=== PATIENT | male | born 1975 | race African-American/Black ===

== ENCOUNTER 2017-04-24 14:35 | Inpatient (IN) | payer OTHER, MEDICAID ==
[~2017-04-24] VITALS: Ht 188 cm; Wt 80.0 kg
[2017-04-24 14:48] VITALS: BP 142/90; PULSE 98; RESP 18; O2SAT 98
[2017-04-24] MEDS ORDERED: ONDANSETRON HCL 4 MG/2 ML VIAL IV ONE (15:00)
[2017-04-24] MEDS ORDERED: MORPHINE SULFATE 4 MG/ML INJ IV PUSH ONE ×2 (15:00→17:15)
[2017-04-24] MEDS ORDERED: SODIUM CHLOR 0.9% 1000 ML INJ 1,000 ML IV ONE (15:00)
[2017-04-24 15:08] LABS: I-STAT POTASSIUM 3.7 MMOL/L (3.5-4.9); I-STAT SODIUM 139 MMOL/L (138-146)
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
[2017-04-24 15:17] LABS: AUTOMATED NEUTROPHIL # 10.3 TH/MM3 (1.8-7.7); BASOPHIL # 0.1 TH/MM3 (0-0.2); BASOPHIL % 0.4 % (0.0-2.0); EOSINOPHIL # 0.1 TH/MM3 (0-0.4); EOSINOPHIL % 0.7 % (0.0-4.0); HEMATOCRIT 42.3 % (39.0-51.0); HEMO FLAGS DIFF FINAL; LYMPH % 19.1 % (9.0-44.0); LYMPHOCYTE # 2.7 TH/MM3 (1.0-4.8); MEAN CELL VOLUME 89.4 FL (80.0-100.0); MEAN CORPUSCULAR HEMOGLOBIN 29.5 PG (27.0-34.0); MONO % 8.1 % (0.0-8.0); NEUT % 71.7 % (16.0-70.0); PLATELET COUNT 226 TH/MM3 (150-450); RED BLOOD COUNT 4.74 MIL/MM3 (4.50-5.90); RED CELL DISTRIBUTION WIDTH 14.4 % (11.6-17.2); WHITE BLOOD COUNT 14.4 TH/MM3 (4.0-11.0)
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
[2017-04-24] MEDS ORDERED: IOHEXOL 350 MG/ML 10 ML VIAL (for RAD DIAG) IVCONTRAST ONE (15:26)
[2017-04-24 15:28] LABS: ALCOHOL LESS THAN 3 MG/DL (0-5)
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
[2017-04-24] MEDS ORDERED: LIDOCAINE HCL 1% 50 ML VIAL INFIL ONE (15:45)
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
[2017-04-24 17:09] VITALS: BP 133/72; PULSE 89; RESP 18; O2SAT 100
[2017-04-24 20:00] VITALS: BP 123/72; PULSE 74; RESP 18; TEMP 98; O2SAT 99
[2017-04-24] MEDS ORDERED: PANTOPRAZOLE SODIUM 40 MG VIAL IVP SCH (21:00)
[2017-04-24] MEDS ORDERED: ENALAPRILAT 1.25 MG/ML VIAL IV PUSH PRN (21:15)
[2017-04-24] MEDS ORDERED: ACETAMINOPHEN/HYDROcodone 325 MG/5 MG TAB PO PRN (21:15)
[2017-04-24] MEDS ORDERED: SODIUM CHLORIDE 0.9% FLUSH 10 ML FLUSH IV FLUSH PRN (21:15)
[2017-04-24] MEDS ORDERED: MAGNESIUM HYDROXIDE SUSP 30 ML CUP PO PRN (21:15)
[2017-04-24] MEDS ORDERED: HYDROmorphone HCL PF 1 MG/ML VIAL IVP PRN (21:15)
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
[2017-04-24] MEDS: HYDROmorphone HCL PF 2 MG/ML VIAL IV PUSH PRN (22:14)
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
[2017-04-24] MEDS: METHOCARBAMOL 500 MG TAB PO SCH (23:08)
[2017-04-24] MEDS: ACETAMINOPHEN/HYDROcodone 325 MG/5 MG TAB PO PRN (23:09)
[2017-04-24] MEDS: SODIUM CHLOR 0.9% 1000 ML INJ 1,000 ML IV SCH (23:12)
[2017-04-25] VITALS: BP 158/79; PULSE 60; RESP 18; TEMP 98.4; O2SAT 99
[2017-04-25 02:00] VITALS: O2SAT 98
[2017-04-25] MEDS: HYDROmorphone HCL PF 2 MG/ML VIAL IV PUSH PRN ×5 (02:06→20:21)
[2017-04-25] MEDS: ACETAMINOPHEN/HYDROcodone 325 MG/5 MG TAB PO PRN (03:06)
[2017-04-25 03:31] LABS: AUTOMATED NEUTROPHIL # 5.6 TH/MM3 (1.8-7.7); BASOPHIL % 0.2 % (0.0-2.0); EOSINOPHIL % 0.1 % (0.0-4.0); HEMATOCRIT 41.4 % (39.0-51.0); HEMO FLAGS DIFF FINAL; LYMPH % 16.5 % (9.0-44.0); LYMPHOCYTE # 1.3 TH/MM3 (1.0-4.8); MEAN CELL VOLUME 89.7 FL (80.0-100.0); MEAN CORPUSCULAR HEMOGLOBIN 29.2 PG (27.0-34.0); MEAN CORPUSCULAR HGB CONC 32.5 % (32.0-36.0); MONO % 14.7 % (0.0-8.0); NEUT % 68.5 % (16.0-70.0); PLATELET COUNT 185 TH/MM3 (150-450); RED BLOOD COUNT 4.61 MIL/MM3 (4.50-5.90); RED CELL DISTRIBUTION WIDTH 14.3 % (11.6-17.2); WHITE BLOOD COUNT 8.1 TH/MM3 (4.0-11.0)
[2017-04-25 04:00] LABS: BICARBONATE 25.5 MEQ/L (21.0-32.0)
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
[2017-04-25] MEDS: METHOCARBAMOL 500 MG TAB PO SCH ×3 (06:09→22:14)
[2017-04-25] MEDS ORDERED: fentaNYL 50 MCG/HR PATCH T-DERMAL SCH ×2 (06:30→15:00)
[2017-04-25] MEDS ORDERED: ACETAMINOPHEN/HYDROcodone 325 MG/10 MG TAB PO PRN (06:30)
[2017-04-25 08:00] VITALS: BP 138/67; PULSE 62; RESP 16; TEMP 97.6; O2SAT 100
[2017-04-25] MEDS: REMOVE OLD PATCH T-DERMAL SCH (09:00)
[2017-04-25] MEDS: DOCUSATE SODIUM 50 MG/SENNA 8.6 MG TAB PO SCH ×2 (09:00→19:53)
[2017-04-25] MEDS: FAMOTIDINE 20 MG TAB PO SCH ×2 (09:13→19:53)
[2017-04-25] MEDS: SODIUM CHLOR 0.9% 1000 ML INJ 1,000 ML IV SCH (09:16)
[2017-04-25] MEDS: LIDOCAINE HCL 5% PATCH T-DERMAL SCH ×2 (09:17→10:42)
[2017-04-25] MEDS: ACETAMINOPHEN 1000 MG/100 ML 100 ML IV SCH ×3 (10:43→18:07)
[2017-04-25 12:00] VITALS: BP 136/69; PULSE 75; RESP 16; TEMP 97.7; O2SAT 93
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
[2017-04-25 16:00] VITALS: BP 130/72; PULSE 65; RESP 17; TEMP 99.4; O2SAT 94
[2017-04-25 20:00] VITALS: BP 136/72; PULSE 67; RESP 17; TEMP 97.3; O2SAT 95
[2017-04-26] VITALS: BP 136/78; PULSE 74; RESP 17; TEMP 98.4; O2SAT 96
[2017-04-26] MEDS: HYDROmorphone HCL PF 2 MG/ML VIAL IV PUSH PRN ×2 (00:24→04:34)
[2017-04-26] MEDS: ACETAMINOPHEN 1000 MG/100 ML 100 ML IV SCH (00:24)
[2017-04-26] MEDS: ONDANSETRON HCL 4 MG/2 ML VIAL IV PUSH PRN ×2 (02:57→09:38)
[2017-04-26 04:00] VITALS: BP 125/61; PULSE 81; RESP 17; TEMP 97.7; O2SAT 100
[2017-04-26] MEDS: METHOCARBAMOL 500 MG TAB PO SCH ×2 (06:30→13:21)
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
[2017-04-26 08:00] VITALS: BP 130/93; PULSE 81; RESP 19; TEMP 97.7; O2SAT 95
[2017-04-26] MEDS: IBUPROFEN 800 MG TAB PO SCH ×2 (09:17→13:20)
[2017-04-26] MEDS: DOCUSATE SODIUM 50 MG/SENNA 8.6 MG TAB PO SCH (09:17)
[2017-04-26] MEDS: FAMOTIDINE 20 MG TAB PO SCH (09:18)
[2017-04-26] MEDS: LIDOCAINE HCL 5% PATCH T-DERMAL SCH (09:19)
[2017-04-26] MEDS: REMOVE OLD PATCH T-DERMAL SCH (09:19)
[2017-04-26] MEDS ORDERED: PERC5TAB12 PO (11:34)
[2017-04-26] MEDS ORDERED: METH500T3 PO (11:34)
[2017-04-26 12:00] VITALS: BP 186/88; PULSE 82; RESP 18; TEMP 97.8; O2SAT 96
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
--- NOTE | 2017-04-26 13:48 | EKG ---
Date Performed: 04/24/2017 Time Performed: 13:47:48 PTAGE: 41 years EKG: Ectopic atrial rhythm. Abnormal ECG NO PREVIOUS TRACING DOCTOR: Jamaal Lambert Interpretating Date/Time 04/27/2017 13:07:19
[2017-04-26] MEDS ORDERED: NORC5TAB PO (13:57)
[2017-04-26] MEDS ORDERED: ACETAMINOPHEN/HYDROcodone 325 MG/10 MG TAB PO PRN (14:00)
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
[2017-04-26 16:00] VITALS: BP 127/87; PULSE 78; RESP 18; TEMP 99; O2SAT 96
--- NOTE | 2017-04-26 16:48 | RADRPT ---
EXAM DATE/TIME: 04/26/2017 15:59 [facility] COMPARISON: CHEST SINGLE AP, April 26, 2017, 6:35. INDICATIONS : Right clavicle pain with swelling near the SC joint MEDICAL HISTORY : None. SURGICAL HISTORY : None. ENCOUNTER: Initial ACUITY: 3 days PAIN SCORE: 9/10 LOCATION: Right Clavicle FINDINGS: There is abnormal separation at the right a.c. joint. There are multiple right rib fractures. No pneu mothorax is seen on the right. Questionable small avulsion fracture distal clavicle. CONCLUSION: 1. Abnormal separation at the right a.c. joint with questionable small avulsion fracture distal clavi alecia. Multiple right rib fractures. Rodney Blakely MD on April 26, 2017 at 16:44 Board Certified Radiologist. This report was verified electronically.
[2017-04-28] MEDS ORDERED: REMOVE OLD DURAGESIC (FENTANYL) PATCH T-DERMAL SCH (15:00)
== END 2017-04-26 17:59 | disposition home or self-care (01) | DRG 200 ==
LOC: NEPE 14:35 → NEDA 17:15 → N07A 18:55
PROVIDERS: ADMIT Surgery; ATTEND Surgery
PROC: 0HQ2XZZ Repair Right Ear Skin, External Approach (ICD-10-PCS; principal; 2017-04-24)
DX: S27.0XXA Traumatic pneumothorax, initial encounter (principal); S27.321A Contusion of lung, unilateral, initial encounter; S22.41XA Multiple fractures of ribs, right side, initial encounter for closed fracture; S01.311A Laceration without foreign body of right ear, initial encounter; M25.511 Pain in right shoulder; I10 Essential (primary) hypertension; G43.909 Migraine, unspecified, not intractable, without status migrainosus; V86.19XA Passenger of other special all-terrain or other off-road motor vehicle injured in traffic accident, initial encounter; Y92.410 Unspecified street and highway as the place of occurrence of the external cause
CPT/HCPCS: 12011; 70450; 71010; 71020; 71260; 72125; 72170; 73000; 73030; 74177; 80048; 80307; 82435; 82565; 82947; 84132; 84295; 84520; 85025; 93005; 94150; 94667; 94668; 96374; 96375; C9113; J0131; J1170; J2270; J2405; J7030; Q9967